=== PATIENT | male | born 1985 | race Caucasian/White ===

== ENCOUNTER 2021-05-04 11:51 | Emergency (ER) | payer OTHER ==
[~2021-05-04] VITALS: Ht 172.7 cm; Wt 61.2 kg
[2021-05-04] MEDS ORDERED: NAPROXEN250 MG PO (12:50)
[2021-05-04] MEDS ORDERED: TYLENOL325 M1 PO (12:50)
[2021-05-04] MEDS ORDERED: AUGMENTIN 875875 MG PO (12:50)
[2021-05-04] MEDS ORDERED: Peridex 473 ML473 ML PO (12:50)
== END 2021-05-04 12:54 | disposition home or self-care (01) ==
LOC: ED 11:51
DX: K04.7 Periapical abscess without sinus (principal); Z88.1 Allergy status to other antibiotic agents

== ENCOUNTER 2021-11-18 09:12 | Emergency (ER) | payer OTHER ==
[~2021-11-18] VITALS: Ht 172.7 cm; Wt 59.0 kg
[~2021-11-18 09:12] MED LIST: AUGMENTIN 875875 MG PO; NAPROXEN250 MG PO; Peridex 473 ML473 ML PO; TYLENOL325 M1 PO
[2021-11-18] MEDS ORDERED: Motrin,Rufen800 MG PO (10:09)
[2021-11-18] MEDS ORDERED: AMOXICILLIN875 MG PO (10:09)
== END 2021-11-18 10:25 | disposition home or self-care (01) ==
LOC: ED 09:12
DX: K08.89 Other specified disorders of teeth and supporting structures (principal); Z88.1 Allergy status to other antibiotic agents